=== PATIENT | female | born 1970 | race Caucasian/White ===

== ENCOUNTER 2024-04-23 06:49 | Outpatient (CLI) | payer MEDICAID ==
[2024-04-23] MEDS ORDERED: LIDOcaine 1% 30ml preserv. free vial ONE (06:53)
[2024-04-23] MEDS ORDERED: GADOTERATE MEGLUMINE 7.5 MMOL/15 ML VIAL IV ONE (06:53)
[2024-04-23] MEDS ORDERED: LIDOcaine 1%/PF 5ML 10 MG/ML VIAL ONE (06:53)
[2024-04-23] MEDS ORDERED: iohexol 300 MG/1 ML 50ml polymer ONE (06:53)
== END 2024-04-23 23:59 | disposition home or self-care (01) ==
LOC: RAD 06:49
PROVIDERS: ATTEND Family Medicine Sports Medicine
DX: M25.512 Pain in left shoulder (principal); M75.42 Impingement syndrome of left shoulder; M25.812 Other specified joint disorders, left shoulder; Z79.899 Other long term (current) drug therapy
CPT/HCPCS: 73222; A9575; J2003; J3490; Q9967; 23350